=== PATIENT | male | born 1955 | race Caucasian/White ===

== ENCOUNTER 2023-11-17 11:28 | Emergency (ER) | payer MEDICARE, OTHER, SELFPAY ==
[2023-11-17 11:44] VITALS: BP 175/109
[2023-11-17 11:53] VITALS: BMI 29.2
[2023-11-17 12:42] VITALS: BP 182/118
--- NOTE | 2023-11-17 12:42 | EDRN ---
Pt was seen by Dr Berry.
--- NOTE | 2023-11-17 12:51 | EDRN ---
Nose clip in place and no bleeding noted at this time from R nare
--- NOTE | 2023-11-17 13:51 | ED.GENMED ---
History of Present Illness
General
Chief Complaint: Nose Bleed
Source: patient and spouse
Exam Limitations: none
Time Seen by Provider: 11/17/23 12:18
Nursing documentation reviewed up to this point in time: agreed with
Travel History
Have you had any contact with someone who has COVID-19?: No
Do you have any symptoms of coronavirus? Fever > 100 degrees, chills, cough, shortness of breath, sore throat, loss of taste or smell, muscle aches, or headache?: No
History of Present Illness
History of Present Illness:
68-year-old male with past medical history of BPH who presents to the emergency room accompanied by his for evaluation of epistaxis. Patient reports initial onset yesterday evening�he says that he had heavy bleeding from the right nare for
about an hour. Bleeding resolved with some pressure. This morning when he woke up he started bleeding again from his right nare and had trouble controlling it; he says he called his primary doctor and he scheduled an appointment with an ENT for
Monday but bleeding continued to be off and on so he came to the emergency room for assessment. He was hemostatic in triage but by my assessment he was bleeding again out of his right nare. He denies any trauma. No bleeding from the left nare.
He denies any posterior bleeding and has not swallowed significant bloody size. He denies any other complaints. He is not on any blood thinners.
Review of Systems
Review of Systems
All Other Systems: ROS reviewed and negative except as documented in HPI and ROS
EENT: Reports other (Epistaxis)
Phy Exam
Physical Exam
Physical Exam:
General: Awake, alert, oriented x3; holding bloodsoaked tissue to his nose
Head: Normocephalic, atraumatic
Eyes: Conjunctiva normal
Nose: Patient has very small pulsatile bleed from the right nasal septum; no bleeding from the left nare, left nasal septum appears normal
Throat: Airway intact, handling secretions, no significant posterior epistaxis
Neck: Trachea midline
Lungs: Breathing comfortably no distress
Heart: Regular rate
Neuro: No gross deficits
Skin: no rash, no bruising
Extremities: Warm and well-perfused
Scores
Heart Failure Risk
Heart Failure Risk Score: Not Applicable
Heart Score for Chest Pain Patients
STEMI patient?: Not applicable
Withdrawal Assessment of Alcohol
Withdrawal Assessment Completed?: Not applicable
Course
Vital Signs
Initial and Last Documented VS:
Initial Vital Signs
Temp Pulse Resp BP Pulse Ox
36.6 C 85 18 175/109 98
11/17/23 11:44 11/17/23 11:44 11/17/23 11:44 11/17/23 11:44 11/17/23 11:44
Last Documented Vital Signs
Temp Pulse Resp BP Pulse Ox
36.6 C 95 18 182/118 100
11/17/23 11:44 11/17/23 12:42 11/17/23 12:42 11/17/23 12:42 11/17/23 12:42
Procedures
Nosebleed
Drug treatment: Epinephrine
Treatment: local pressure applied and Silver nitrate cautery
Post treatment bleeding: none- good control
MDM/Problems Addressed
Differential Diagnosis Includes:
Anterior epistaxis�tiny venous versus arterial pulsing/oozing bleed from the right nasal septum
MDM/Problems Addressed:
68-year-old male presents for evaluation of epistaxis-he has acute right anterior epistaxis from small slightly pulsing/oozing vessel. Applied gauze soaked with epinephrine to the septum and applied direct pressure. Bleeding slowed but not
resolved after this applied cautery with silver nitrate with hemostasis. Will observe here for any rebleeding. If he remains hemostatic we will plan to discharge. Educated on holding direct pressure and measures to take should bleeding recur. He
has an appointment scheduled with ENT on Monday already and he will keep this appointment. His blood pressure has been elevated here I spoke to him at length about this suspect he is stressed with significant epistaxis and ER visit. He has no
signs or symptoms of hypertensive emergency at this point and I do not see any emergent indication for antihypertensive at present--he has no known history of hypertension. He plans to follow-up with his primary doctor to have his blood pressure
rechecked. Discussed return precautions and all questions answered.
Acute Exacerbation and/or Progression of Chronic Illness:
Acutely hypertensive
Acute Exacerbation and/or Progression of Chronic Illness: HTN
*Pulse Oximetry
Patient hypoxic: no
*Critical Care Note
Total Time (30-74mins, 75-104mins- exclusive of procedures): Not Applicable
Data Reviewed
Source: patient and spouse
Patient Management
Social determinants of health affecting care: Strong social support
ED Attending Note
-
Portions of this chart may have been created with voice recognition software.� Occasional wrong word or��sound alike� substitutions may have occurred due to the inherent limitations of voice recognition software.
Discharge Plan
Departure
Patient with high blood pressure during this ER visit?: Yes
Discharge Problem:
Acute anterior epistaxis, Hypertension
Instructions: Nosebleeds (DC), BLOOD PRESSURE
Referrals:
Yordan Cruz MD [Family Provider] - Call in 1-3 days for appt
Activity Restrictions/Additional Instructions:
You should follow-up with the ENT on Monday as scheduled. You should follow-up with your primary doctor next week as we discussed to have your blood pressure rechecked.
Thank you for visiting the Emergency Department at [facility].
1. Please schedule a follow up appointment as directed. Call first thing tomorrow morning to make an appointment.
2. If indicated, please take your medications as instructed and indicated on discharge paperwork.
3. If any of your symptoms do not improve, or persist, or become more severe within 6-12 hours, please return to the emergency department for further care.
4. Please return to the emergency department if you develop a headache, neck pain/stiffness, fever greater than 100.4F, chest pain, shortness of breath, persistent nausea, vomiting, slurred speech, difficulty walking, numbness/tingling, weakness,
signs of infection or any other symptoms that are worrisome to you.
Please call [phone] if you have any questions.
Interventions
Interventions:
*Risk Screen - Suicide Last Done: 11/17/23 12:02
*General Assessment Last Done: 11/17/23 12:00
*Neglect/Abuse Screening Last Done: 11/17/23 12:02
ED- Fall Risk Assessment Last Done: 11/17/23 12:00
*ED COVID-19 Vaccine History Last Done: 11/17/23 11:59
ED-EENT Assessment Last Done: 11/17/23 11:58
[2023-11-17 13:55] VITALS: BP 172/108
[2023-11-17 14:05] VITALS: BP 172/102
== END 2023-11-17 13:55 | disposition home or self-care (01) ==
LOC: EMR 11:28
PROVIDERS: EMERGENCY PHYSICIAN Emergency Medicine; FAMILY PHYSICIAN Family Medicine
DX: R04.0 Epistaxis (principal); I10 Essential (primary) hypertension; N40.0 Benign prostatic hyperplasia without lower urinary tract symptoms
CPT/HCPCS: 99283; 30901

== ENCOUNTER → 2023-11-24 07:38 | Outpatient (REF) | payer MEDICARE, OTHER, SELFPAY ==
[2023-11-24 10:06] LABS: % Basophils 0.4 % (0-2); % Eosinophils 2.8 % (0-6); % Immature Granulocytes 0.3 % (0-0.5); % Lymphocytes 25.3 % (20.5-51.1); % Monocytes 12.8 % (1.7-9.3); % Neutrophils 58.4 % (42.2-75.2); Absolute Eosinophils 0.2 10^3/uL (0-0.7); Absolute Lymphocytes 1.8 10^3/uL (1.2-3.4); Absolute Monocytes 0.9 10^3/uL (0.1-0.6); Absolute Neutrophils 4.2 10^3/uL (1.4-6.5); Hematocrit 43.3 % (39.0-52.0); Hemoglobin 14.4 g/dL (13.0-18.0); Mean Corp Hgb Conc. 33.3 g/dL (33.0-37.0); Mean Corpuscular Hgb 30.3 pg (27.0-31.0); Mean Platelet Volume 8.9 fL (7.4-10.4); Nucleated Red Blood Cells % 0 % (-); Platelet Count 303 10^3/uL (130-400); Red Blood Cell Count 4.76 10^6/uL (4.70-6.10); Red Cell Dist. Width 13.4 % (11.5-14.5); White Blood Cell Count 7.1 10^3/uL (4.8-10.8)
[2023-11-24 10:15] LABS: APTT 32.6 Sec (23.4-35.0); INR 1.06; PT 13.6 Sec (11.4-14.6)
[2023-11-24 10:19] LABS: ALT (SGPT) 28 U/L (0-50); AST (SGOT) 28 U/L (17-59); Albumin 3.7 g/dl (3.5-5.0); Alkaline Phosphatase 77 U/L (38-126); Blood Urea Nitrogen 18 mg/dl (9-20); Calcium 8.9 mg/dl (8.4-10.2); Carbon Dioxide 27 mmol/L (22-30); Chloride 104 mmol/L (98-107); Glucose 99 mg/dl (70-99); HDL Cholesterol 40 mg/dl; LDL Cholesterol, Calculated 69 mg/dl; Potassium 4.2 mmol/L (3.5-5.1); Sodium 139 mmol/L (135-145); Total Bilirubin 0.8 mg/dl (0.2-1.3); Total Cholesterol 136 mg/dl (50-199); Total Protein 6.1 g/dl (6.3-8.2); Triglyceride 138 mg/dl (10-149); Very Low Density Lipoprotein 27 mg/dl (0-30); eGFR > 60.00
[2023-11-24 10:21] LABS: Urine Albumin Negative (Neg - Trace); Urine Bilirubin Negative (Negative); Urine Character Clear (Clear); Urine Color Yellow; Urine Glucose Negative (Negative); Urine Ketone Negative (Negative); Urine Leukocyte Negative (Negative); Urine Nitrite Negative (Negative); Urine Occult Blood Negative (Negative); Urine Urobilinogen Negative (Neg - 1+); Urine pH 6.5 (5.0-9.0)
[2023-11-24 10:47] LABS: TSH 2.42 uIU/ml (0.47-4.68)
[2023-11-24 11:02] LABS: Hepatitis C Antibody Negative (Negative)
[2023-11-24 11:27] LABS: Microalbumin, Random Urine < 0.6 mg/dl (0.6-1.7)
== END ==
LOC: HWLAB 07:38
PROVIDERS: ATTENDING PHYSICIAN Family Medicine
DX: I10 Essential (primary) hypertension (principal); R04.0 Epistaxis; Z11.59 Encounter for screening for other viral diseases
CPT/HCPCS: 36415; 80053; 80061; 81003; 82043; 82570; 84443; 85025; 85610; 85730; 86803